=== PATIENT | female | born 1930 | race Caucasian/White ===

== ENCOUNTER 2018-09-08 08:51 | Emergency (ER) | payer MEDICARE, OTHER ==
[2018-09-08] MEDS ORDERED: ACETAMINOPHEN 325 MG TABLET PO ONE (10:18)
--- NOTE | 2018-09-08 11:32 | RADIOLOGY REPORT (SQ) ---
EXAM DESCRIPTION: CHEST 2 VIEWS COMPLETED DATE/TIME: 09/08/2018 11:21 am REASON FOR STUDY: cough COMPARISON: 11/08/2011 EXAM PARAMETERS: NUMBER OF VIEWS: two views TECHNIQUE: Digital Frontal and Lateral radiographic views of the chest acquired. RADIATION DOSE: NA LIMITATIONS: none FINDINGS: LUNGS AND PLEURA: No opacities, masses or pneumothorax. No pleural effusion. MEDIASTINUM AND HILAR STRUCTURES: No masses or contour abnormalities. HEART AND VASCULAR STRUCTURES: Heart normal size. Coronary stent. No evidence for failure. BONES: Ankylosis of the thoracic spine. HARDWARE: None in the chest. OTHER: No other significant finding. IMPRESSION: No acute abnormality of the lungs. No focal airspace opacity. TECHNICAL DOCUMENTATION: JOB ID: [id number] [employer]- All Rights Reserved Reading location - IP/workstation name: [email or web address]
[2018-09-08 11:36] LABS: ABSOLUTE EOSINOPHILS # (AUTO) 0.1 10^3/uL (0.0-0.6); ABSOLUTE LYMPHOCYTES (AUTO) 0.4 10^3/uL (0.5-4.7); ABSOLUTE MONOCYTES (AUTO) 0.6 10^3/uL (0.1-1.4); ABSOLUTE NEUT (AUTO) 5.1 10^3/uL (1.7-8.2); BASOPHILS % (AUTO) 0.1 % (0-2); EOSINOPHILS % (AUTO) 1.1 % (0-6); HEMATOCRIT 40.4 % (36.0-47.0); HEMOGLOBIN 14.2 g/dL (12.0-15.5); LYMPHOCYTES % (AUTO) 7.1 % (13-45); MEAN CORPUSCULAR HEMOGLOBIN 31.1 pg (27.0-33.4); MEAN CORPUSCULAR HGB CONC 35.2 g/dL (32.0-36.0); MEAN CORPUSCULAR VOLUME 89 fl (80-97); MONOCYTES % (AUTO) 9.9 % (3-13); PLATELET COUNT 186 10^3/uL (150-450); RED BLOOD COUNT 4.57 10^6/uL (3.72-5.28); RED CELL DISTRIBUTION WIDTH 12.9 % (11.5-14.0); SEGMENTED NEUTROPHILS % (AUTO) 81.8 % (42-78); TOTAL CELLS COUNTED % (AUTO) 100 %; WHITE BLOOD COUNT 6.2 10^3/uL (4.0-10.5)
[2018-09-08 11:45] LABS: ALANINE AMINOTRANSFERASE 28 U/L (9-52); ALBUMIN 4.2 g/dL (3.5-5.0); ALKALINE PHOSPHATASE 90 U/L (38-126); ANION GAP 10 (5-19); ASPARTATE AMINO TRANSFERASE 29 U/L (14-36); BILIRUBIN,DIRECT 0.4 mg/dL (0.0-0.4); BILIRUBIN,TOTAL 0.7 mg/dL (0.2-1.3); BLOOD UREA NITROGEN 8 mg/dL (7-20); CALCIUM 9.2 mg/dL (8.4-10.2); CARBON DIOXIDE 26 mmol/L (22-30); CHLORIDE 106 mmol/L (98-107); GLUCOSE 92 mg/dL (75-110); POTASSIUM 3.8 mmol/L (3.6-5.0); SODIUM 141.6 mmol/L (137-145); TOTAL PROTEIN 7.2 g/dL (6.3-8.2)
[2018-09-08 11:52] LABS: A TYPE INFLUENZA AG NEGATIVE (NEGATIVE); B INFLUENZA AG NEGATIVE (NEGATIVE)
[2018-09-08 13:01] LABS: APPEARANCE,URINE CLEAR; BILIRUBIN,URINE NEGATIVE (NEGATIVE); COLOR,URINE YELLOW; GLUCOSE, URINE NEGATIVE (NEGATIVE); KETONES,URINE NEGATIVE (NEGATIVE); LEUKOCYTE ESTERASE,URINE NEGATIVE (NEGATIVE); NITRITE,URINE NEGATIVE (NEGATIVE); PROTEIN,URINE NEGATIVE (NEGATIVE); URINE SPECIFIC GRAVITY 1.011; UROBILINOGEN,URINE NEGATIVE mg/dL (<2.0)
--- NOTE | 2018-09-08 13:39 | ER Document Report ---
ED General - General Chief Complaint: Chest Congestion Stated Complaint: COLD SYMPTOMS Time Seen by Provider: 09/08/18 10:16 Primary Care Provider: FEDE FRAGOSO MD [Primary Care Provider] - Follow up as needed TRAVEL OUTSIDE OF THE [place] IN LAST 30 DAYS: No - HPI Notes: Patient presents emergency department for evaluation. She has had cough and congestion since yesterday. Her cough is productive of clear sputum only. She states he has had some low-grade fevers, 99.2 at home. No nausea or vomiting. She is eating and drinking normally. Urinating and defecating without difficulties. No cuts or rashes. She denies any shortness of breath. She was seen in urgent care a few weeks ago and diagnosed with "sinusitis." She was placed on Augmentin. She states all of her symptoms completely resolved from that. - Related Data Allergies/Adverse Reactions: codeine [Codeine] Allergy (Verified 09/08/18 08:52) Past Medical History - General Information source: Patient - Social History Smoking Status: Former Smoker Frequency of alcohol use: None Drug Abuse: None Family History: Reviewed & Not Pertinent Patient has suicidal ideation: No Patient has homicidal ideation: No - Past Medical History Cardiac Medical History: Reports: Hx Hypercholesterolemia, Hx Hypertension Pulmonary Medical History: Denies: Hx Tuberculosis Renal/ Medical History: Denies: Hx Peritoneal Dialysis Malignancy Medical History: Reports: Hx Breast Cancer - 07/2006 Past Surgical History: Reports: Hx Appendectomy, Hx Cardiac Catheterization - stents x2, Hx Cholecystectomy, Hx Mastectomy - right, Hx Orthopedic Surgery - bennett hip replacements, Hx Vascular Surgery - L CEA. Denies: Hx Pacemaker Review of Systems - Review of Systems Constitutional: See HPI EENT: No symptoms reported Cardiovascular: No symptoms reported Respiratory: See HPI Gastrointestinal: No symptoms reported Genitourinary: No symptoms reported Female Genitourinary: No symptoms reported Musculoskeletal: No symptoms reported Hematologic/Lymphatic: No symptoms reported Physical Exam - Vital signs Vitals: Temp Pulse Resp BP Pulse Ox 100.2 F 97 18 149/73 H 94 09/08/18 08:57 09/08/18 08:57 09/08/18 08:57 09/08/18 08:57 09/08/18 08:57 - Notes Notes: Vital signs reviewed, please refer to chart. Patient is normocephalic, atraumatic. Pupils equal round, reactive to light. Neck is supple without meningismus. Heart is regular rate and rhythm. Lungs are clear to auscultation bilaterally. Abdomen is soft, nontender, normoactive bowel sounds throughout. Extremities without cyanosis, clubbing, edema. Peripheral pulses are equal. Skin is warm and dry. Patient is awake, alert, neurological exam is nonfocal. Course - Re-evaluation Re-evalutation: 09/08/18 13:37 Patient presents emergency department for evaluation. Given her age and comorbidities, I did feel it appropriate to order blood work in this patient is temperature and heart rate were mildly elevated. Laboratory investigations were entirely unremarkable. Chest x-ray failed to show any signs of infection. Influenza was found to be negative as well. Patient was administered Tylenol and continues to feel significantly improved here. Recheck vital signs were u nremarkable. At this point I will have her follow-up with her primary care physician. She was taking both Robitussin-DM as well as Mucinex. She was advised that these of the same medications, she should only be taking 1. She voiced understanding to this. We will send her home with Derick Salgado and close follow-up. She is to return to the emergency department with worsening or new concerning symptoms of any sort. 09/08/18 13:37 - Vital Signs Vital signs: Temp Pulse Resp BP Pulse Ox 98.5 F 75 16 115/59 L 94 09/08/18 12:16 09/08/18 12:16 09/08/18 12:16 09/08/18 12:16 09/08/18 12:16 - Laboratory Result Diagrams: 09/08/18 10:50 09/08/18 10:50 Laboratory results interpreted by me: 09/08/18 09/08/18 10:50 10:50 Seg Neutrophils % 81.8 H Lymphocytes % 7.1 L Absolute Lymphocytes 0.4 L Creatinine 0.47 L Discharge - Discharge Clinical Impression: Upper respiratory infection Condition: Stable Disposition: HOME, SELF-CARE Instructions: Upper Respiratory Illness ([facility]), Viral Syndrome ([facility]) Additional Instructions: Rest, stay well-hydrated. Tylenol as needed for pain and fever. Use Tessalon Perles as directed. Follow-up with your doctor this week. Return to the emergency department with worsening or new concerning symptoms of any sort. Referrals: FEDE FRAGOSO MD [Primary Care Provider] - Follow up as needed
[2018-09-08 14:18] VITALS: BP 141/73
== END 2018-09-08 14:25 | disposition home or self-care (01) ==
LOC: ER 08:51
DX: J06.9 Acute upper respiratory infection, unspecified (principal); R05 Cough; R09.89 Other specified symptoms and signs involving the circulatory and respiratory systems; I10 Essential (primary) hypertension; Z87.891 Personal history of nicotine dependence; Z88.5 Allergy status to narcotic agent; Z85.3 Personal history of malignant neoplasm of breast; Z95.5 Presence of coronary angioplasty implant and graft
CPT/HCPCS: 99283; 36415; 87040; 85025; 80053; 81001; 87804; 71046; A9270